=== PATIENT | male | born 1940 | race Hispanic/Latino ===

== ENCOUNTER → 2022-12-15 | Outpatient (CLI) | payer OTHER ==
[~2022-12-15] MED LIST: IOHEXOL 350 MG/ML 100ML INFUS..BTL IV ONE
== END | disposition home or self-care (01) ==
LOC: RAH 11:00
PROVIDERS: ATTEND Student in an Organized Health Care Education/Training Program
DX: I71.43 Infrarenal abdominal aortic aneurysm, without rupture (principal); N28.89 Other specified disorders of kidney and ureter; K76.89 Other specified diseases of liver
CPT/HCPCS: 74174; Q9967

== ENCOUNTER → 2023-01-21 | Outpatient (CLI) | payer OTHER | END | disposition home or self-care (01) | LOC: SHCH 08:33 | PROVIDERS: ATTEND Student in an Organized Health Care Education/Training Program | DX: I71.40 Abdominal aortic aneurysm, without rupture, unspecified (principal); I70.0 Atherosclerosis of aorta; I70.8 Atherosclerosis of other arteries | CPT/HCPCS: 93978 ==

== ENCOUNTER 2023-05-25 01:22 | Emergency (ER) | payer OTHER ==
[~2023-05-25] VITALS: Ht 165.1 cm; Wt 61.2 kg
[2023-05-25] MEDS: METOCLOPRAMIDE 10 MG/2 ML VIAL IVP ONE (03:28)
[2023-05-25] MEDS: FAMOTIDINE 20MG VIAL IV ONE (03:28)
[2023-05-25] MEDS: MORPHINE 2 MG SYG IVP ONE (03:29)
[2023-05-25 08:05] VITALS: BP 164/69; PULSE 59; RESP 18; O2SAT 100
[2023-05-25] MEDS: LIDOCAINE HCL 1% 20 ML VIAL INJ SCH (08:54)
== END 2023-05-25 09:42 | disposition home or self-care (01) ==
LOC: EDH 01:22
DX: S01.01XA Laceration without foreign body of scalp, initial encounter (principal); W18.39XA Other fall on same level, initial encounter; Y93.89 Activity, other specified; Y92.89 Other specified places as the place of occurrence of the external cause; Y99.8 Other external cause status
CPT/HCPCS: 99285; 70450; 96374; 71045; 96375; 72170; 72125; 70486; 12001; J3490; J2270; J2765

== ENCOUNTER → 2024-01-16 | Outpatient (CLI) | payer OTHER ==
--- NOTE | 2024-01-17 13:18 | HMCSR ---
APPROVED REPORT Duplex Results A/PTransverseLongitudinalVelocityWaveform Proximal Aorta 1.81cm1.90cm1.93cm72.60 cm/sec Mid Aorta 1.90cm2.03cm2.01cm86.10 cm/sec Distal Aorta 3.55cm4.07cm3.90cm38.50 cm/sec Rt. Common Iliac Artery1.45cm1.64cm1.31cm90.70 cm/sec Lt. Common Iliac Artery 1.36cm1.55cm1.23su341.80 cm/sec Techologist Impression There is evidence of an infrarenal abdominal aortic aneurysm measuring largest at 3.55 cm x 4.07 cm x 3.9 cm. The bilateral common iliac arteries appear patent. Conclusion There is evidence of an infrarenal abdominal aortic aneurysm measuring largest at 3.55 cm x 4.07 cm x 3.9 cm. The bilateral common iliac arteries appear patent. Conclusion There is evidence of an infrarenal abdominal aortic aneurysm measuring largest at 3.55 cm x 4.07 cm x 3.9 cm. The bilateral common iliac arteries appear patent.
== END | disposition home or self-care (01) ==
LOC: SHCH 09:12
PROVIDERS: ATTEND Student in an Organized Health Care Education/Training Program
DX: I71.43 Infrarenal abdominal aortic aneurysm, without rupture (principal)
CPT/HCPCS: 93978

== ENCOUNTER → 2025-02-03 | Outpatient (CLI) | payer OTHER ==
--- NOTE | 2025-02-04 11:10 | HMCIMG ---
EXAM: US examination, one body part CLINICAL HISTORY: AAA TECHNIQUE: Real-time ultrasound examination performed with image documentation. COMPARISON: None provided. FINDINGS: There is a large, focal, dilation of the distal abdominal aorta measuring 4.87 x 4.2cm with a layer of mural thrombus measuring 1cm along the anterior and lateral au of the aneurysm. The aortic au are thickened and calcified. Doppler image shows turbulent flow. IMPRESSION: Distal abdominal aortic aneurysm with atherosclerotic changes and mural thrombus as described. /Emily
== END | disposition home or self-care (01) ==
LOC: RAH 07:39
PROVIDERS: ATTEND Student in an Organized Health Care Education/Training Program
DX: I71.40 Abdominal aortic aneurysm, without rupture, unspecified (principal); I51.3 Intracardiac thrombosis, not elsewhere classified; I70.0 Atherosclerosis of aorta
CPT/HCPCS: 76775